=== PATIENT | male | born 1960 | race Caucasian/White ===

== ENCOUNTER 2016-07-04 12:16 | Emergency (ER) | payer OTHER ==
--- NOTE | 2016-07-04 12:18 | ED Physician Chart ---
Chief Complaint/HPI - Patient Information Date Seen:: 07/04/16 Time Seen:: 12:18 Chief Complaint:: alcohol intoxication History of Present Illness:: 56-year-old male history of alcohol abuse, brought in by EMS with acute, moderate to severe, alcohol intoxication. Patient has associated uncooperative behavior. Was found drunk on an elementary school grounds. Elementary school called police. Police felt he was too drunk to go to the [facility]. He was brought to the emergency room instead. History limited as patient has uncooperative behavior due to alcohol intoxication History provided by EMS and EMS run sheet Allergies:: Allergies Allergy/AdvReac Type Severity Reaction Status Date / Time MDX No Known Allergies - Nka Allergy Verified 10/05/15 19:25 Historian:: EMS Review:: Nurse's Note Reviewed, EMS run form Reviewed Review of Systems - Review of Systems Other: Complete system review otherwise unremarkable except as noted in HPI. Past Medical History - Past Medical History Past Medical History: Other (alcohol abuse) Family History: None Social History: Non Smoker, Alcohol, No Drug Use, Surgical History: None Psychiatricy History: None Medication: None Family Medical History - Family Member Mother History Unknown: Yes Ethnicity: Non- Physical Exam - Physical Examination Other:: INITIAL VITAL SIGNS: Reviewed by me GENERAL: Alert and interactive. No acute distress. Intoxicated. Uncooperative. HEAD: Head is normocephalic and atraumatic EYES: EOMI. . No scleral icterus. No conjunctival injection ENT: Moist mucous membranes. NECK: Supple. No masses. Full range of motion RESPIRATORY: No tachypnea. Clear breath sounds bilaterally. No wheezing, rales, or rhonchi CV: Regular rate and rhythm. No murmurs, rubs, or gallops ABDOMEN: Soft, non-distended, non-tender. No guarding. No rebound. No masses. EXTREMITIES: No deformity. No cyanosis. No edema. SKIN: Warm and dry. No obvious rashes. NEUROLOGIC: Alert and oriented. Face is symmetric. Speech is normal. Moves all extremities equally. Motor and sensory distally intact. ED Septic Shock - . Is Septic Shock (SBP<90, OR Lactate>4 mmol\L) present?: No Reassessment (Disposition) - Reassessment Reassessment:: The patient's blood pressure was elevated (>120/80) but appears stable without evidence of hypertensive emergency or urgency. The patient was counseled about the risks hypertension urged to pursue outpatient monitoring and therapy within a week with her primary care physician. Patient was able to metabolize alcohol. Was walking without any assistance and a very steady gait. Discharge to home. Follow-up with PCP 1-2 days. Gave return to ER precautions. Patient understands and agrees the plan. Reassessment Condition:: Improved - Diagnosis Diagnosis:: Alcohol intoxication Elevated blood pressure without diagnosis of hypertension - Aftercare/Follow up Instructions Aftercare/Follow-Up Instructions:: Counseled pt regarding lab results/diagnosis & need follow up, Refer to Discharge Instructions - Patient Disposition Discharge/Transfer:: Home Time:: 17:00 Condition at Disposition:: Improved ED Discharge Plan - Patient Disposition Admit/Discharge/Transfer: PT DISCHARGED HOME Condition at Disposition: Improved Instructions: Alcohol Intoxication
== END 2016-07-04 17:09 | disposition home or self-care (01) ==
LOC: ER 12:16
DX: F10.129 Alcohol abuse with intoxication, unspecified (principal); R03.0 Elevated blood-pressure reading, without diagnosis of hypertension
CPT/HCPCS: Z7502

== ENCOUNTER 2016-12-18 23:07 | Emergency (ER) | payer OTHER ==
[2016-12-18] MEDS ORDERED: Sodium Chloride 0.45% 500 ML IV ONE ×2 (23:36)
[2016-12-18 23:46] LABS: % BASOPHILS 0.7 % (0.0-2.0); % EOSINOPHILS 1.2 % (0.0-5.0); % LYMPHOCYTES 28.5 % (20.0-50.0); % MONOCYTES 7.3 % (2.0-10.0); % NEUTROPHILS 62.3 % (40.0-80.0); HEMATOCRIT 38.2 % (39.0-49.0); MEAN CELL VOLUME 100.8 fl (80-99); MEAN CORPUSCULAR HEMOGLOBIN 34.4 pg (26.0-30.0); MEAN CORPUSCULAR HGB CONC 34.1 pg (28.0-36.0); MEAN PLATELET VOLUME 7.2 fl; NEUTROPHILE ABSOLUTE 5.3 Th/cmm (1.8-8.0); PLATELET COUNT 103 Th/cmm (150-400); RED BLOOD COUNT 3.78 Mil/cmm (4.30-5.70); RED CELL DISTRIBUTION WIDTH 14.5 % (11.5-20.0)
--- NOTE | 2016-12-18 23:47 | ED Physician Chart ---
Chief Complaint/HPI - Patient Information Allergies:: Allergies Allergy/AdvReac Type Severity Reaction Status Date / Time No Known Allergies Allergy Verified 07/04/16 12:30 Vitals:: Vital Signs - 8 hr 12/18/16 23:10 Temp 98.4 F HR 96 RR 20 BP 147/88 O2 Sat % 96 Family Medical History - Family Member Mother History Unknown: Yes Ethnicity: Non- ED Septic Shock - <6hrs of presentation: Vital Signs: Vital Signs - 8 hr 12/18/16 23:10 Temp 98.4 F HR 96 RR 20 BP 147/88 O2 Sat % 96
[2016-12-18 23:50] LABS: WHITE BLOOD COUNT 8.5 Th/cmm (4.8-10.8)
--- NOTE | 2016-12-18 23:50 | ED Physician Chart ---
Chief Complaint/HPI - Patient Information Date Seen:: 12/18/16 Time Seen:: 23:15 Chief Complaint:: alcohol intoxication History of Present Illness:: THIS IS A 56 YO ALCOHOLIC BIB HIS BECAUSE A SIGNIFICANT INTAKE OF ALCOHOL. HE HAS A HISTORY OF ALCOHOLISM AND IS IN A REHAB PROGRAM CURRENTLY. HE WAS FOUND DOWN ON THE GROUND TODAY. HE DENIES PAIN BUT HAS AN ABRASION OF THE HEAD , FACE AND KNEES THAT APPEARS TO BE OLD . HE ALSO HAS HYPERTENSION AND HIGH CHOLESTEROL. HE DENIES CHEST AND ABDOMINAL PAIN. Allergies:: Allergies Allergy/AdvReac Type Severity Reaction Status Date / Time No Known Allergies Allergy Verified 07/04/16 12:30 Vitals:: Vital Signs - 8 hr 12/18/16 23:10 Temp 98.4 F HR 96 RR 20 BP 147/88 O2 Sat % 96 Historian:: Patient, Family Member () Review:: Nurse's Note Reviewed, Old Chart Reviewed Review of Systems - Review of Systems General/Constitutional: No fever, No chills, No weight loss, No weakness, No diaphoresis, No edema, No loss of appetite Skin: No skin lesions, No rash, No bruising Head: No headache, No light-headedness Eyes: No loss of vision, No pain, No diplopia ENT: No earache, No nasal drainage, No sore throat, No tinnitus Neck: No neck pain, No swelling, No thyromegaly, No stiffness, No mass noted Cardio Vascular: No chest pain, No palpitations, No PND, No orthopnea, No edema Pulmonary: No SOB, No cough, No sputum, No wheezing GI: No nausea, No vomiting, No diarrhea, No pain, No melena, No hematochezia, No constipation, No hematemesis G/U: No dysuria, No frequency, No hematuria Musculoskeletal: No bone or joint pain, No back pain, No muscle pain Endocrine: No polyuria, No polydipsia Psychiatric: Prior psych history, No depression, No anxiety, No suicidal ideation Hematopoietic: No bruising, No lymphadenopathy Allergic/Immuno: No urticaria, No angioedema Neurological: No syncope, No focal symptoms, No weakness, No paresthesia, No headache, No seizure, No dizziness, No confusion, No vertigo Past Medical History - Past Medical History Obtainable: Yes Past Medical History: HTN, Other (ALCOHOLISM) Family History: None Social History: Non Smoker, Alcohol, No Drug Use, Surgical History: None Psychiatricy History: Depression Medication: Reviewed Family Medical History - Family Member Mother History Unknown: Yes Ethnicity: Non- Physical Exam - Physical Examination General/Constitutional: Awake, Well-developed, well-nourished, Alert, No distress, GCS 15, Non-toxic appearing, Ambulatory Other Head comments:: ABRASION OF THE RIGHT OCCIPITAL AREA OF THE SCALP Eyes: Lids, conjuctiva normal, PERRL, EOMI Skin: Nl inspection, No rash, No skin lesions, No ecchymosis, Well hydrated, No lymphadenopathy ENMT: External ears, nose nl, Nasal exam nl, Lips, teeth, gums nl Neck: Nontender, Full ROM w/o pain, No JVD, No nuchal rigidity, No bruit, No mass, No stridor Respiratory: Nl effort/Exclusion, Clear to Auscultation, No Wheeze/Rhonchi/Rales Cardio Vascular: RRR, No murmur, gallop, rubs, NL S1 S2 GI: No tenderness/rebounding/guarding, No organomegaly, No hernia, Normal BS's, Nondistended, No mass/bruits, No McBurney tenderness : No CVA tenderness Extremities: Full ROM, normal strength in all extremities, No edema, Normal digits & nails Other Extremities comments:: ABRASIONS OF BOTH KNEES. Neuro/Psych: Alert/oriented, DTR's symmetric, Normal sensory exam, Normal motor strength, Judgement/insight normal, Mood normal, Normal gait, No focal deficits Misc: normal gait, Normal back, No paraspinal tenderness Assessment - Assessment General Assessment: RECURRENT ALCOHOL INTOXICATION ED Septic Shock - . Is Septic Shock (SBP<90, OR Lactate>4 mmol\L) present?: No - <6hrs of presentation: Vital Signs: Vital Signs - 8 hr 12/18/16 23:10 Temp 98.4 F HR 96 RR 20 BP 147/88 O2 Sat % 96 Reassessment (Disposition) - Reassessment Reassessment Condition:: Improved - Diagnosis Diagnosis:: ALCOHOL INTOXICATION CONTUSION AND ABRASION OF THE HEAD - Aftercare/Follow up Instructions Aftercare/Follow-Up Instructions:: Counseled pt regarding lab results/diagnosis & need follow up, Refer to Discharge Instructions, Counseled pt & family regarding lab results/diagnosis & need follow up Notes:: HOME WITH HIS . - Patient Disposition Discharge/Transfer:: Home Condition at Disposition:: Improved
[2016-12-19 00:01] LABS: INR 0.87 (0.5-1.4); PROTHROMBIN TIME (TEST) 8.9 SECONDS (9.5-11.5)
[2016-12-19 00:01] LABS: URINE BILIRUBIN NEGATIVE (NEGATIVE); URINE BLOOD SMALL (NEGATIVE); URINE COLOR YELLOW; URINE GLUCOSE (UA) NEGATIVE (NEGATIVE); URINE KETONE TRACE mg/dL (NEGATIVE); URINE PROTEIN 100 mg/dL (NEGATIVE); URINE UROBILINOGEN 0.2 E.U./dL (0.2 - 1.0)
[2016-12-19 00:02] LABS: URINE BACTERIA FEW /hpf (NONE SEEN); URINE EPITHELIAL CELLS FEW /lpf (FEW); URINE WBC 0-2 /hpf (0-5)
[2016-12-19 00:03] LABS: ALB/GLOB RATIO 1.6 (1.0-1.8); BILIRUBIN,TOTAL 0.6 mg/dL (0.3-1.0); BUN/CREATININE RATIO 21.3; CALCIUM SERUM 8.3 mg/dL (8.6-10.3); CARBON DIOXIDE 17.3 mEq/L (21.0-31.0); CREATININE - SERUM 1.6 mg/dL (0.7-1.3); POTASSIUM SERUM 4.3 mEq/L (3.5-5.1)
[2016-12-19 00:04] LABS: AMPHETAMINE URINE NEGATIVE (NEGATIVE); BARBITURATES URINE NEGATIVE (NEGATIVE); METHADONE URINE NEGATIVE (NEGATIVE)
--- NOTE | 2016-12-19 09:10 | Diagnostic Imaging Report ---
CT Examination of Brain without Contrast History: Trauma Total DLP equals 807 CTDI equals 44.1 Multiple contiguous sections of the brain were obtained from base skull to the vertex without the administration of the contrast material ,no prior studies available for comparison. The study demonstrates abnormal density brain parenchyma. There is no evidence for hemorrhage or midline shift or edema. The cerebellum is intact. The ventricles are normal. The paranasal sinuses are well aerated. The bony calvarium is intact. Impression: 1. Normal examination of brain
== END 2016-12-19 01:15 | disposition home or self-care (01) ==
LOC: ER 23:07
DX: F10.129 Alcohol abuse with intoxication, unspecified (principal); I10 Essential (primary) hypertension; S00.93XA Contusion of unspecified part of head, initial encounter; W19.XXXA Unspecified fall, initial encounter; Y93.89 Activity, other specified; Y92.89 Other specified places as the place of occurrence of the external cause; Y99.8 Other external cause status
CPT/HCPCS: 36415-UA; 70450-TC; 80053-TC; 80307; 80320-TC; 81001-TC; 81003-TC; 84443-TC; 84484-TC; 85025-TC; 85610-TC; 86592-TC